=== PATIENT | male | born 1975 | race Caucasian/White ===

== ENCOUNTER 2017-08-07 19:27 | Emergency (ER) | payer BC ==
[2017-08-07 19:42] VITALS: RESP 16; TEMP 98.6
--- NOTE | 2017-08-07 19:51 | EDPHY ---
HPI/HX/ROS/PE/MDM Narrative: CHIEF COMPLAINT: Glass in right eye HPI: The patient is a 41 y/o male complaining of a piece of porcelain tile in his right eye after cutting tile this afternoon. He was wearing safety glasses and using a wet saw, when he believes a small piece of tile entered his right eye after being deflected from his cheek and under his safety glass lens. Currently he is unsure if the piece of glass is still in his eye, but it feels like there is a scratch on the right eye. The patient admits to having astigmatism but denies history of eye surgery. No headache, chest pain, shortness of breath, abdominal pain, numbness, paresthesias, or fever. REVIEW OF SYSTEMS: Aside from elements discussed in the HPI, a comprehensive 10-point review of systems was reviewed and is negative. PMH: Astigmatism SOCIAL HISTORY: at bedside, lives in [facility] PHYSICAL EXAM: General: Patient is alert, in no acute distress. ENT: ENT inspection normal. EYES:Visual Acuity: noted from Nurse's notes. Lids: no proptosis, no periorbital erythema or swelling, no vesicles Conjunctivae: No erythema, no discharge Pupils: equal round and reactive to light EOMI Cornea: Superficial abrasion to 10:00 position on right cornea, no foreign body visualized Anterior chamber: Clear, no hyphema Neck: Normal inspection. Full range of motion. Neuro: Oriented x3. Normal motor function. Normal sensory function. Portions of this note were transcribed by an ED scribe. I personally performed the history, physical exam, and medical decision making; and confirm the accuracy of the information in the transcribed note. ED Course: 1954: Numbing drops administered to right eye by myself. 1999: I preformed a fluorescein eye exam. Patient's eye will be rinsed out with normal saline. I have advised him to follow up with an coiler in the next week for unimproved symptoms. I have prescribed him Gentac and Percocet for his symptoms. Return precautions provided; patient is comfortable with this plan. MDM: This patient presents with FB sensation to right eye. He was using a power tile saw, but given safety glass use, he is sure there was no direct flight of FB into eye. No sign of penetrating trauma on exam. No sign of FB - eye extensively irrigated as a precaution. - Data Points Medications Given: Discontinued Medications Gentamicin Sulfate (Gentak 0.3% Opht Drops Prepack) 1 btl TAKEHOME EDNOW ONE Stop: 08/07/17 20:07 Last Admin: 08/07/17 20:35 Dose: 1 btl Oxycodone/Acetaminophen (Percocet 5/325mg Prepack#4) 1 btl TAKEHOME EDNOW ONE Stop: 08/07/17 20:06 Last Admin: 08/07/17 20:36 Dose: 1 btl General Time Seen by Provider: 08/07/17 19:50 Initial Vital Signs: Initial Vital Signs Temperature (C) 37.0 C 08/07/17 19:38 Heart Rate 78 08/07/17 19:38 Respiratory Rate 16 08/07/17 19:38 Blood Pressure 130/71 H 08/07/17 19:38 O2 Sat (%) 95 08/07/17 19:38 O2 Delivery Mode Room Air Allergies/Adverse Reactions: No Known Allergies Allergy (Verified 12/09/13 20:16) Home Medications: Medication Instructions Recorded No Medications [NO HOME 1 [facility] 09/11/10 MEDICATIONS] Departure - Departure Disposition: Home, Routine, Self-Care Clinical Impression: Cornea abrasion Qualifiers: Encounter type: initial encounter Laterality: right Qualified Code(s): S05.01XA - Injury of conjunctiva and corneal abrasion without foreign body, right eye, initial encounter Condition: Good Instructions: Oxycodone/Acetaminophen (By mouth), Gentamicin (On the skin), Gentamicin (Into the eye), Corneal Abrasion (DC) Additional Instructions: Take the antibiotic, Gentac, as prescribed. Take Percocet as prescribed for severe pain. Follow up with an coiler in the next week for unimproved symptoms. Return to the Emergency Department for severe headache, vomiting, vision changes, confusion, fever or other concerns. Referrals: Randal Blanco MD [Medical Doctor] - As per Instructions Report Scribed for: Leighton Henson Report Scribed by: Kelly Jaquez Date of Report: 08/07/17 Time of Report: 20:10
[2017-08-07] MEDS ORDERED: PROPARACAINE 0.5% 15 ML OPHT DROP ONE (19:53)
[2017-08-07] MEDS ORDERED: OXYCODONE/APAP 5/325MG PREPACK#4 BTL TAKEHOME ONE (20:05)
[2017-08-07] MEDS ORDERED: GENTAMICIN 0.3% DROPS PREPACK OPHT.BTL TAKEHOME ONE (20:06)
[2017-08-07 20:50] VITALS: BP 128/72; PULSE 71; O2SAT 97
== END 2017-08-07 20:47 | disposition home or self-care (01) ==
DX: S05.01XA Injury of conjunctiva and corneal abrasion without foreign body, right eye, initial encounter (principal); X58.XXXA Exposure to other specified factors, initial encounter

== ENCOUNTER 2017-09-05 18:37 | Emergency (ER) | payer BC ==
[2017-09-05] MEDS ORDERED: TDAP ADULT 0.5 ML INJ (BOOSTRIX) IM ONE (20:27)
[2017-09-05] MEDS ORDERED: CEPHALEXIN 500MG PREPACK#4 BTL TAKEHOME ONE (22:04)
--- NOTE | 2017-09-05 22:06 | EDPHY ---
H & P Time Seen by Provider: 09/05/17 20:13 HPI/ROS: CHIEF COMPLAINT: Foreign body right ring finger HISTORY OF PRESENT ILLNESS: 41-year-old male presents to the emergency department with retained foreign body his right ring finger. The patient was at home and was using a drill and part of the screw broke off and went into his left ring finger. The incident happened just prior to arrival at home. He is right-hand dominant. He is unsure of his last tetanus shot. ROS: Denies numbness or tingling in his fingers, or injury to the other fingers. Past Medical/Surgical History: Negative Social History: Smoking Status: Never smoked Physical Exam: On examination the patient has pain with palpation especially the PIP joint of the left 4th digit. He has a puncture wound noted to the palmar aspect of the base of the left 4th finger. He has limited flexion secondary to pain. He has palpable deformity and palpable retained foreign body noted at the PIP joint of the left 4th finger. There is no rotational deformities noted. The other fingers do not appear injured. He has normal sensation to light touch with a strong radial pulse at the left wrist. Constitutional: Initial Vital Signs Temperature (C) 37 C 09/05/17 18:39 Heart Rate 75 09/05/17 18:39 Respiratory Rate 18 09/05/17 18:39 Blood Pressure 157/85 H 09/05/17 18:39 O2 Sat (%) 96 09/05/17 18:39 O2 Delivery Mode Room Air Allergies/Adverse Reactions: No Known Allergies Allergy (Verified 12/09/13 20:16) Home Medications: Medication Instructions Recorded No Medications [NO HOME 1 ea [facility] [place] 09/11/10 MEDICATIONS] Cephalexin [Keflex] 500 mg PO QID #28 cap 09/05/17 MDM/Departure - MDM Imaging Results: Imaging Impressions Finger X-Ray 09/05/17 19:53 Impression: 1. No fracture of the left 4th finger. 2. Radiopaque nail head 7- x 7-mm in the soft tissues just proximal to the left proximal interphalangeal joint. E:GI/amm Finger X-Ray 09/05/17 20:56 Impression: No residual radiopaque foreign body. Imaging: I viewed and interpreted images myself Procedures: Verbal consent was obtained from the patient. The left ring finger was anesthetized using digital block using 1% lidocaine without epinephrine 0.5% bupivacaine without epinephrine. The wound was irrigated with saline, draped and explored to its base with a gloved finger. There were no deep structures involved. No obvious tendon injury was identified. Small incision was made at the left PIP joint and metallic foreign body removed. The wound was thoroughly irrigated and bacitracin dressing applied. Medications Given: Discontinued Medications Cephalexin (Keflex 500 Mg Prepack#4) 1 btl TAKEHOME EDNOW ONE PRN Reason: Protocol Stop: 09/05/17 22:05 Last Admin: 09/05/17 22:13 Dose: 1 btl Diphtheria/Tetanus/Acell Pertussis (Boostrix) 0.5 ml IM .ONCE ONE Stop: 09/05/17 20:28 Last Admin: 09/05/17 20:31 Dose: 0.5 ml ED Course/Re-evaluation: 41-year-old male presents to the emergency department with retained foreign body in his left 4th finger. This was removed, see procedure note. The patient was started on Keflex. Unable to fully exclude tendon injury. No obvious tendon injury. His finger was splinted and he was given orthopedic hand surgical referral. He was warned regarding risks of infection. His tetanus shot was updated. After removal of the foreign body, x-ray was repeated and no retained metallic foreign body noted. No obvious fractures noted. - Depart Disposition: Home, Routine, Self-Care Clinical Impression: Foreign body of left ring finger Condition: Good Instructions: Cephalexin (By mouth), Soft Tissue Foreign Body (ED), Acute Wounds (ED) Additional Instructions: Keflex 500 mg 4 times daily for 1 week to prevent infection. Splint for comfort and support. Return to the emergency department if he notices any signs or symptoms of infection such as redness, swelling, increased pain, fever , purulent drainage. Follow up with hand surgeon this week to recheck. Prescriptions: Cephalexin [Keflex] 500 mg PO QID #28 cap Referrals: Abebe Felton MD [Medical Doctor] - 1-2 days without fail (Hand specialist on -call)
[2017-09-05 22:17] VITALS: BP 139/81
== END 2017-09-05 22:17 | disposition home or self-care (01) ==
PROC: 0JCK0ZZ Extirpation of Matter from Left Hand Subcutaneous Tissue and Fascia, Open Approach (ICD-10-PCS; principal; 2017-09-05)
DX: S60.455A Superficial foreign body of left ring finger, initial encounter (principal); Z23 Encounter for immunization; W45.8XXA Other foreign body or object entering through skin, initial encounter; Y92.009 Unspecified place in unspecified non-institutional (private) residence as the place of occurrence of the external cause; Y99.8 Other external cause status; Y93.89 Activity, other specified